=== PATIENT | male | born 1945 | race Caucasian/White ===

== ENCOUNTER 2019-08-16 07:55 | Day surgery (SDC) | payer MEDICARE, BC ==
[~2019-08-16] VITALS: Ht 182.9 cm; Wt 100.4 kg
[~2019-08-16 07:55] MED LIST: ASPI-496 PO; BUPIVACAINE/PF 0.5% ONE; EPINEPHRINE 1 MG/ML, 1ML ONE; ESOM40CA PO; LIDOCAINE 1%-EPI 1:100K, 20ML ONE; LOSA50TA14 PO; MULT-717 PO; OMEG1CAP6 PO; SIMV20TA3 PO
[2019-08-16] MEDS ORDERED: FENTANYL PF 250 MCG/5ML ONE (08:29)
[2019-08-16 08:41] VITALS: BP 129/88
[2019-08-16 09:31] LABS: ALANINE AMINOTRANSFERASE 27 U/L (12-78); ALBUMIN 3.7 g/dL (3.4-5.0); ANION GAP 8 mmol/L (5-15); CALCIUM 8.4 mg/dL (8.5-10.1); CHLORIDE 108 mmol/L (98-107); CREATININE 1.06 mg/dL (0.7-1.3)
[2019-08-16 09:34] LABS: ALKALINE PHOSPHATASE 77 U/L (45-117); BILIRUBIN,TOTAL 0.7 mg/dL (0.2-1.0); TOTAL PROTEIN 7.2 g/dL (6.4-8.2)
[2019-08-16] MEDS ORDERED: MIDAZOLAM 1 MG/ML, 2ML ONE (09:46)
[2019-08-16] MEDS ORDERED: GLYCOPYRROLATE 0.2MG/1ML, 5ML ONE (10:03)
[2019-08-16] MEDS ORDERED: EPHEDRINE 50 MG/ML, 1ML ONE (10:03)
[2019-08-16] MEDS ORDERED: SUCCINYLCHOLINE 20 MG/ML, 10ML ONE (10:03)
[2019-08-16] MEDS ORDERED: CEFAZOLIN 1,000 MG ONE ×3 (10:30)
[2019-08-16] MEDS ORDERED: PROPOFOL 10 MG/ML, 20ML ONE ×2 (10:30)
[2019-08-16] MEDS ORDERED: ONDANSETRON 2MG/ML, 2ML ONE (10:30)
[2019-08-16] MEDS ORDERED: DEXAMETHASONE 4 MG/ML, 1ML ONE ×2 (10:30)
[2019-08-16] MEDS ORDERED: ROPIvacaine/PF 0.5%, 30 ML ONE (10:42)
[2019-08-16] MEDS ORDERED: FENTANYL PF 100 MCG/2ML IV PRN (11:00)
[2019-08-16] MEDS ORDERED: ACETAMINOPHEN 325 MG TABLET PO PRN (11:00)
[2019-08-16] MEDS ORDERED: OXYcodone 5 MG/5 ML ORAL.SOL UDC PO PRN (11:00)
[2019-08-16] MEDS ORDERED: PROMETHAZINE 25 MG/ML, 1ML IV PRN (11:00)
[2019-08-16] MEDS ORDERED: ACETAMINOPHEN 325 MG TABLET ONE (12:01)
[2019-08-16] MEDS ORDERED: ACETAMINOPHEN 650 MG/20.3 ML UDC ONE (12:01)
[2019-08-16] MEDS ORDERED: PANTOPROZOLE 40MG TABLET PO SCH (21:00)
[2019-08-16] MEDS ORDERED: SIMVASTATIN 20 MG TABLET PO SCH (21:00)
[2019-08-16] MEDS ORDERED: ASPIRIN 81 MG TABLET EC PO SCH (21:00)
[2019-08-17] MEDS ORDERED: LOSARTAN 25MG TABLET PO SCH (09:00)
== END 2019-08-16 14:20 | disposition home or self-care (01) ==
LOC: OUT 07:55
PROVIDERS: ATTEND Orthopaedic Surgery
DX: S46.011A Strain of muscle(s) and tendon(s) of the rotator cuff of right shoulder, initial encounter (principal); T84.89XA Other specified complication of internal orthopedic prosthetic devices, implants and grafts, initial encounter; S43.431A Superior glenoid labrum lesion of right shoulder, initial encounter; M75.41 Impingement syndrome of right shoulder; M65.811 Other synovitis and tenosynovitis, right shoulder; M75.51 Bursitis of right shoulder; I10 Essential (primary) hypertension; K21.9 Gastro-esophageal reflux disease without esophagitis; Z79.899 Other long term (current) drug therapy; Z88.0 Allergy status to penicillin; Z82.3 Family history of stroke; X58.XXXA Exposure to other specified factors, initial encounter; Y93.89 Activity, other specified; Y92.89 Other specified places as the place of occurrence of the external cause; Y99.8 Other external cause status; Y83.8 Other surgical procedures as the cause of abnormal reaction of the patient, or of later complication, without mention of misadventure at the time of the procedure
CPT/HCPCS: 29823; 29826; 29827; 36415; 64415; 80053; 93005; C1713; J0171; J0330; J0690; J1100; J2250; J2405; J2704; J2795; J3010; J3490